=== PATIENT | female | born 1950 | race Caucasian/White ===

== ENCOUNTER 2024-06-27 12:47 | Outpatient (AMB) | payer OTHER, SELFPAY ==
--- NOTE | 2024-06-27 12:53 | A.OFFPC_ITS ---
Vital Signs 06/27/24 13:01 BMI Reason not done Patient refused/unable BP 128/70 Blood Pressure Location Rt brachial Position Right Lateral Respiration 14 Pulse 93 Pulse Source Pulse Oximeter Pulse Oximetry (%) 97 Oxygen Delivery Method Room Air Intake Visit Reasons: Est. care Intake Note: New patient visit Territory Account Manager Required: No Allergies pantoprazole [From Protonix] Allergy (Severe, Verified 06/27/24 14:19) Rash warfarin Allergy (Severe, Verified 06/27/24 14:19) severe pain, blood pockets Tobacco use date assessed: 06/27/24 Fall risk assessment: 2 + Falls in past year Last assessed Fall Risk: 06/27/24 Dental Screening Dental Screen Date: 06/27/24 Did you have a dental visit in the last 12 months?: No Did you have a dental problem in the last 6 months where you did not have access to dental care?: No Was dental information given to patient?: Patient declined HPI HPI Comments History of Present Illness Details 73 y/o F with chronic bilat knee pain, h iatal hernia, malnourishment requiring g tube (since removed), History of right upper extremity thrombus status post surgery, dysphagia, obesity, paroxysmal AFib, sick sinus syndrome status post dual chamber pacemaker, FLOR noncompliant with CPAP, fatty liver, abdominal aorta vascular calcification noted on CT of the abdomen 04/04/2024,peripheral neuropathy Status post Azar-en-Y gastric bypass in 2007, lap GJ ulcer perforation repair with Nguyễn patch in 2015 Family hx: brother prostate ca Health Maintenance: Colon last one 2021, WNL. Mammo declined Dexa Pap NA Tdap admin today, - Pneumococcal vaccination status pending verification from pharmacy Flu declined Specialists: Cards Here today to est care Available records limited, reviewed Obesity/Falls/immobilty: would like home PT uses walker and wheelchair PAF/Pacemaker: On no cardiac meds. Reports PV Cards monitors her pacer. No recent office visits. Getting out of home hard. Depends on van for transport. CAD: not on statin. BLE: c/o chronic edema wo SOB. Does not trend wt at home. FLOR: nontolerant of CPAP Hiatal hernia: - Regular Carafate medication for managing stomach issues post- gastric bypass; feels this controls her sx well. Does not want GI referral. Social History - Age: 73 years old - Currently resides in [place] - Mobility limited; relies on a walker a nd a recliner for sleep Review of Systems - Constitutional: Denies fever or recent illness, but experiences fatigue. - Cardiovascular: No complaints reported during conversation. - Gastrointestinal: Discussed history of gastric bypass and subsequent management issues. - Musculoskeletal: Reports difficulty wa lking, dependence on walker, and general fatigue after mild exertion. - Neurological: Reports neuropathy-like symptoms in feet, feeling of a band across the top of the feet. - Integumentary: Swelling in lower extre mities. Physical Exam General: Well developed, well nourished, in no acute distress. Appears stated age. Head: Normocephalic, atraumatic. Lungs: Clear to auscultation bilaterally. No rales, rhonchi or wheeze noted. Good air flow in all tavarez. Heart: Regular rate and rhythm. No murmurs, click, rubs or gallops are noted. Pulses: Peripheral pulses are equally decreased and palpable bilaterally. Extremities: Sitting in w/c, +1-2 edema ble, skin intact Psych: Normal eye contact, affect and mood appropriate, and normal interactions. Patient is alert and appropriate to context. Discussion Notes I engaged in a comprehensive discussion with the patient about her mobility issues, recurrent falls, and peripheral edema. The patient expressed a need for physical therapy to enhance her strength and mobility. We acknowledged her history of gastric bypass surgery and assessed her ongoing use of Carafate to mitigate gastrointestinal issues. I assessed the need for vaccinations, including Tdap, which was administered, and we discussed the pneumococcal vaccination, with plans to verify her records through a pharmacy. We also addressed her reaction to flu shots. I instructed her to follow up with physical therapy and will conduct a video visit soon to evaluate progress with the prescribed treatments and interventions. Assessment and Plan 73-year-old female with a history of gas tric complications post-bypass surgery, mobility impairment, and recurrent falls presenting with peripheral edema. The patient shows signs of neuropathy and utilizes a walker due to weakness and balance issues. It?s essential to enhance her functional mobility through physical therapy and assess the underlying causes of her edema. We will continue her Carafate for gastric management and monitor her cardiac status remotely with her pacemaker. Patient was informed and verbally consented to the use of an ambient scribe for clinic note documentation during this visit. 1. Peripheral Edema I will prescribe a diuretic for fluid management pending lab results and assess potassium levels before continuing treatment. 2. Vomiting With Dehydration Previously stable after hospitalization. Continue monitoring for recurrence and adjust supportive management as necessary. 3. Mobility Impairment Mobility impairment, primarily due to weakness and potential nerve damage, requires physical therapy, which has been requested for in-home services. The patient to push her mobility boundaries safely under professional guidance. 4. Neuropathy Clinically consistent with peripheral neuropathy. We?ll focus on symptomatic management with possible subsequent follow-up with neurology if symptoms persist or advance. 5. Status Post Gastric Bypass Surgery Continue using Carafate with timing adjustments as tolerated to manage gastric complications. No further intervention needed; defer surgical revision as risks outweigh benefits at her age. Total time spent caring for the patient today was 76 minutes. This includes time spent before the visit reviewing the chart, time spent during the visit, and time spent after the visit on documentation, reviewing laboratory results, diagnostic imaging, medications, performing a medically necessary evaluation, counseling on diagnoses, care coordination, ordering appropriate tests, ordering appropriate medications, review of tests performed by other providers, reporting test results with the patient, communication with other healthcare providers. 06/28/24 Labs resulted after hours, K 2.5 Sent to [facility] for eval and tx. I did not RX any new medications as of this time & will fu after hospital stay PFSH Medical History (Updated 06/28/24 @ 09:59 by Toña Dewey, [facility]) Pacemaker Surgical History (Updated 06/27/24 @ 14:19 by Elisha Irwin) H/O gastric bypass Family History (System 06/27/24 @ 14:19 by Elisha Irwin) Brother Cancer Father Diabetes Social History (System 06/27/24 @ 14:19 by Elisha Irwin) Housing: House (senior housing ) Alcohol intake: former Comment: hasnt had alcohol in 6-7 years Patient Tobacco Use Status: Never used Tobacco e-Cigarette/Vaping Use: Never Used service: No Current occupational status: retired Cognitive needs: No Hearing needs: No Vision needs: No Questionnaire PHQ-9 Over the last 2 weeks, how often have you been bothered by any of the following problems? 1. Little interest or pleasure in doing things: not at all 2. Feeling down, depressed, or hopeless: not at all 3. Trouble falling or staying asleep, or sleeping too much: not at all 4. Feeling tired or having little energy: not at all 5. Poor appetite or overeating: not at all 6. Feeling bad about yourself - or that you are a failure or have let yourself or your family down: not at all 7. Trouble concentrating on things, such as reading the newspaper or watching television: not at all 8. Moving or speaking so slowly that other people could have noticed. Or the opposite - being so fidgety or restless that you have been moving around a lot more than usual: not at all 9. Thoughts that you would be better off or of hurting yourself in some way: not at all Total score: 0 Depression Screening Interpretation: Negative Depression Screening Done: Yes 35049 - PHQ-9 Billing: Yes Source: Developed by Drs. Augustine Goldman, Kayleen De La Cruz, Jose Deal and colleagues, with an educational elizabeth from [employer]. Thrive Questionnaire Date Thrive assessed: 06/27/24 I am a: Patient What is your living situation today?: I have a steady place to live Within the past 12 months, did the food you bought not last and you didn't have the money to get more?: Never true Within the past 12 months, did you worry whether your food would run out before you got money to buy more?: Never true Do you have trouble paying for medicines?: No Do you have trouble getting transportation to medical appointments?: Yes Do you have trouble paying your heating and electricity bill?: No Do you have trouble taking care of your child, family member or friend?: No Do you have trouble with day-to-day activities such as bathing, preparing meals, shopping, managing finances, etc.?: I choose not to answer this question Are you currently unemployed and looking for a job?: No Are you interested in more education?: No Please select the resources that you would like help with: None Currently or been in a relationship where the following occur: I choose not to answer THRIVE Score: 1 AUDIT C Alcohol Use Questionnaire (AUDIT-C) 1. How often do you have a drink containing alcohol?: Never 3. How often do you have six or more drinks on one occasion?: Never Total Score: 0 Score Reviewed/Action Taken: Yes BENJAMIN-7 AMB Questionnaire BENJAMIN-7 Date BENJAMIN - 7 assessed: 06/27/24 Feeling nervous, anxious, or on edge: 0 = Not at all Not being able to stop or control worryin = Not at all Worrying too much about different things: 0 = Not at all Trouble relaxin = Not at all Being so restless that it is hard to sit still: 0 = Not at all Becoming easily annoyed or irritable: 0 = Not at all Feeling afraid as if something awful might happen: 0 = Not at all Total BENJAMIN-7 score (0-4 normal; 5-9 mild; 10-14 moderate; 15-21 severe): 0 Source: Developed by Drs. Augustine Goldman, Kayleen De La Cruz, Jose Deal and colleagues, with an educational elizabeth from [employer]. Physical exam (Primary Care) Vital Signs: Last Vital Signs Pulse 93 06/27/24 13:01 Resp 14 06/27/24 13:01 BP 128/70 06/27/24 13:01 Pulse Ox 97 06/27/24 13:01 Oxygen Delivery Method Room Air 06/27/24 13:01 BMI Assessment/Plan discussion: High BMI High, discussed plan: lifestyle Tobacco/Smoking Status: Tobacco use Status Tobacco use date assessed 06/27/24 06/27/24 13:06 Patient Tobacco Use Status Never used Tobacco 06/27/24 13:00 e-Cigarette/Vaping Use Never Used 06/27/24 13:06 PHQ-9: PHQ-9 Score PHQ-9: Total score 0 06/28/24 09:55 Depression Screening Interpretation: Negative Thrive Assessment: Date of Thrive Assessment Date Thrive assessed 06/27/24 06/27/24 13:46 Currently or been in a relationship where the following occur: I choose not to answer Immunizations Boostrix Tdap 2.5 Lf unit-8 mcg-5 Lf/0.5 mL intramuscular syringe Performing Provider: LEIGH Pickering Performing Location: [facility] Administered by: Shalonda Thacker RN on 06/27/24 14:06 Dose Route Admin Location Dispensed Lot Number Expiration Date [facility] [employer] 0.5 mL IM Right Deltoid 0.5 mL [id number] 08/04/26 89864-207-42 4[employer]ox VIS Given Date VIS Provided VIS Publication Date 06/27/24 Single Vaccine 20 Eligibility Eligibility Date Funding Source Not VFC Eligible 06/27/24 Private Results Reviewed Results Reviewed: RUN: 06/28/24 0954 PAGE 1 [facility] [address] [place] [id number] [employer] [place] Supervisor: Yosvany Perea M.D. Specimen Inquiry Name: Leeanna Wright Age/Sex: 73/F : 1950 Unit#: [id number] Attend Dr: Toña Dewey Re06/27/24 Status: DEP REF Location: [facility] Disch: SPEC : [id number] MICHELLE: 06/27/24-135 STATUS: COMP REQ : [id number] RECD: 06/27/24-[address]: To[facility]wey [facility] COMP: 06/27/24-183 ENTERED: 06/27/24-[address]: ORDERED: CMP, Lipid Panel, TSH Rflx Test Result Flag Reference Sodium 142 135-145 mmol/L Potassium 2.5 *L 3.3-5.1 mmol/L Critical value for test(s): POTS Results called to and read back by: Person calling: [facility] Date: 06/27/24 Time: 1825 CL 103 96-108 mmol/L CO2 30 H 22-29 mmol/L Gap 12 12-20 BUN 10 9-16 mg/dL Creat 0.57 0.5-1.4 mg/dL eGFR > 60 Chronic Kidney Disease: Estimated GFR < 60 mL/min/1.73m2 Severe Kidney Disease: Estimated GFR < 15 mL/min/1.73m2 Glucose, Random 88 60-115 mg/dL CA 7.7 L 8.4-10.2 mg/dL Total Bili 1.0 0.0-1.0 mg/dL AST (GOT) 38 H 5-31 U/L ALT (GPT) < 6 0-31 U/L Protein, Total 6.2 L 6.5-8.0 g/dL Alb 2.7 L 3.5-5.0 g/dL Triglyceride 118 <150 mg/dL Desirable Triglyceride: less than 150 mg/dL Borderline High Triglyceride 150-199 mg/dL High Triglyceride: 200-499 mg/dL Very High Triglyceride: greater than or equal to 5OO mg/dL Cholesterol 124 <200 mg/dL Desirable Cholesterol: less than 200 mg/dL Borderline High Cholesterol: 200-239 mg/dL High Cholesterol: greater than 239 mg/dL LDL Calculated 51 <100 mg/dL Desirable LDL: less than 100 mg/dL Near Optimal/Above Optimal LDL: 110-129 mg/dL Borderline High LDL: 130-159 mg/dL High LDL: 160-189 mg/dL Very High LDL: greater than or equal to 190 mg/dL HDL 50 >40 mg/dL Desirable HDL: greater than 40 mg/dL Note: This HDL assay may give artificially low results in patients with liver disease. Alk Phos 89 39-117 U/L TSH 1.92 0.32-4.0 uIU/mL Coding Level of Care Code New Pt Level 5 (11290) Complex EM visit Add On G2211 Diagnoses Encounter to establish care Z76.89 Frequent falls R29.6 Immobility Z74.09 Influenza vaccination declined Z28.21 Laboratory exam ordered as part of routine general medical examination Z00.00 Leg weakness, bilateral R29.898 Lower extremity edema R60.0 Need for Tdap vaccination Z23 Pacemaker Z95.0 PAF (paroxysmal atrial fibrillation) I48.0 Hiatal hernia K44.9 History of DVT (deep vein thrombosis) Z86.718 Morbidly obese E66.01 FLOR (obstructive sleep apnea) G47.33 Fatty liver K76.0 Coronary artery disease involving [place] coronary artery of [place] heart without angina pectoris I25.10 Associated angina: without angina Coronary Disease-Associated Artery/Lesion type: [place] artery [place] vs. transplanted heart: [place] heart Protein-calorie malnutrition, unspecified severity E46 Protein-calorie malnutrition severity: unspecified severity Hypokalemia E87.6 Hypocalcemia E83.51 Anemia, unspecified type D64.9 Anemia type: unspecified type CPT Codes PROLONG OUTPT/OFFICE VIS - G2212 Additional Codes PHQ-9 - 31086 - PHQ-9 Billing: Yes ([id number]) Assessment & Plan Assessment & Plan (1) Encounter to establish care: Code(s): Z76.89 - Persons encountering health services in other specified circumstances Category: Medical (2) Frequent falls: Code(s): R29.6 - Repeated falls Category: Medical (3) Immobility: Code(s): Z74.09 - Other reduced mobility Category: Medical (4) Influenza vaccination declined: Code(s): Z28.21 - Immunization not carried out because of patient refusal Category: Medical (5) Laboratory exam ordered as part of routine general medical examination: Code(s): Z00.00 - Encounter for general adult medical examination without abnormal findings Category: Medical (6) Leg weakness, bilateral: Code(s): R29.898 - Other symptoms and signs involving the musculoskeletal system Category: Medical (7) Lower extremity edema: Code(s): R60.0 - Localized edema Category: Medical (8) Need for Tdap vaccination: Code(s): Z23 - Encounter for immunization Category: Medical (9) Pacemaker: Code(s): Z95.0 - Presence of cardiac pacemaker Category: Medical (10) PAF (paroxysmal atrial fibrillation): Code(s): I48.0 - Paroxysmal atrial fibrillation Category: Medical (11) Hiatal hernia: Code(s): K44.9 - Diaphragmatic hernia without obstruction or gangrene Category: Medical (12) History of DVT (deep vein thrombosis): Comment: R upper ext s/p surgery Code(s): Z86.718 - Personal history of other venous thrombosis and embolism Category: Medical (13) Morbidly obese: Code(s): E66.01 - Morbid (severe) obesity due to excess calories Category: Medical (14) FLOR (obstructive sleep apnea): Comment: noncompliant w cpap Code(s): G47.33 - Obstructive sleep apnea (adult) (pediatric) Category: Medical (15) Fatty liver: Code(s): K76.0 - Fatty (change of) liver, not elsewhere classified Category: Medical (16) CAD (coronary artery disease): Comment: abdominal aorta vascular calcification noted on CT of the abdomen 04/04/2024 Code(s): I25.10 - Atherosclerotic heart disease of [place] coronary artery without angina pectoris Category: Medical Qualifiers: Associated angina: without angina Coronary Disease-Associated Artery/Lesion type: [place] artery [place] vs. transplanted heart: [place] heart Qualified Code(s): I25.10 - Atherosclerotic heart disease of [place] coronary artery without angina pectoris (17) Protein calorie malnutrition: Code(s): E46 - Unspecified protein-calorie malnutrition Category: Medical Qualifiers: Protein-calorie malnutrition severity: unspecified severity Qualified Code(s): E46 - Unspecified protein-calorie malnutrition (18) Hypokalemia: Code(s): E87.6 - Hypokalemia Category: Medical (19) Hypocalcemia: Code(s): E83.51 - Hypocalcemia Category: Medical (20) Anemia: Code(s): D64.9 - Anemia, unspecified Category: Medical Qualifiers: Anemia type: unspecified type Qualified Code(s): D64.9 - Anemia, unspecified Plan . Orders: Orders Comprehensive Met. Panel 06/27/24 Z00.00 - Encounter for general adult medical examination without abnormal findings Hemoglobin A1c 06/27/24 Z00.00 - Encounter for general adult medical examination without abnormal findings TSH reflex Free T4 06/27/24 Z00.00 - Encounter for general adult medical examination without abnormal findings TDaP Immunization 06/27/24 Z23 - Encounter for immunization Complete Blood Count no Diff 06/27/24 Z00.00 - Encounter for general adult medical examination without abnormal findings Lipid Panel 06/27/24 Z00.00 - Encounter for general adult medical examination without abnormal findings Vitamin B12 and Folate 06/27/24 Z00.00 - Encounter for general adult medical examination without abnormal findings NT-proBNP 06/27/24 R60.0 - Localized edema Referrals [facility]/Hospice Referral R29.6 - Repeated falls, R29.898 - Other symptoms and signs involving the musculoskeletal system, Z74.09 - Other reduced mobility Cardiology Referral I48.0 - Paroxysmal atrial fibrillation, Z95.0 - Presence of cardiac pacemaker Medications: Refilled sucralfate (Carafate) 1 g PO QIDACHS 120 tabs 12RF 30 days Patient Instructions: Walk-In Care (Urgent Care): We Make it Easy Walk-in for urgent medical issues such as: ? Seasonal Allergies ? Insect Bites ? Cough ? Diarrhea ? Acute Asthma Attacks ? Back, Knee or Joint Pain ? Ear Infection ? Fever without a Rash ? Headaches ? Nausea ? [place], Rash or Skin Irritation ? Sore Throat ? Sports Physicals ? Vomiting Most insurances are accepted. Patients do not need to be part of the [facility] to seek care at the walk-in clinic. Locations [address] , [place] [address] ? [phone] [facility] Walk-In Care in [place] provides services to ages 18 and over. Open Tuesday-Tuesday: 8 a.m. to 5 p.m. and Tuesday: 9 a.m. to 3 p.m.* *Hours may vary due to staffing availability. To confirm Walk-In Care hours in [place], please call [phone]. [address] [place] [address] ? [phone] [facility] Walk-In Care in [place] provides services to ages 12 and over. Open Tuesday-Tuesday: 8 a.m. to 5 p.m. Hours may vary due to staffing availability. To confirm Walk-In Care hours in [place], please call [phone]. LABORATORY SERVICES: [facility] Lab ? Primary Location [address] [place] [address] Tuesday through Tuesday 6:00 AM ? 5:00 PM Tuesday 7:00 AM ? 11:00 AM* [phone] The [facility] Lab is centrally located near the front entrance of the [facility] for easy outpatient access. Convenient parking is provided for outpatients. *Hours may vary due to staffing availability. To confirm Laboratory hours for any location, please call [phone]. Offsite Location For your convenience, we offer offsite laboratory draw stations at the following locations: [address] [place] [address] ? [facility] [address], [address] Tuesday through Tuesday 7:30 AM ? 1:00 PM* [phone] *Hours may vary due to staffing availability. To confirm Laboratory hours for any location, please call [phone]. [place] ? Jodi Contreras [address] Tuesday through Tuesday 6:00 AM ? 3:30 PM* Tuesday 6:30 AM ? 3 PM* [phone] *Hours may vary due to staffing availability. To confirm Laboratory hours for any location, please call [phone]. [address] [facility] Tuesday through Tuesday 7:30 AM ? 4:00 PM* [phone] *Hours may vary due to staffing availability. To confirm Laboratory hours for any location, please call [phone]. [address] [facility] Tuesday through 9:00 AM ? 4:00 PM* *Hours may vary due to staffing availability. To confirm Laboratory hours for any location, please call [phone]. Appointments are not necessary. Walk-ins are welcome. Like all the departments throughout the [facility], our Lab undergoes frequent reviews to ensure the quality and accuracy of test results, and our staff takes special pride in its status as a nationally accredited facility. Patient Portal: ONE PATIENT. ONE RECORD. BETTER CARE. [facility] has a fully integrated, cutting- edge mobile electronic health information system that has revolutionized the way we care for our patients and manage our organization. This system improves communication and coordination enabling us to provide safe, higher-quality care, and an overall positive experience for staff and patients. Our first priority, as always, is to deliver the highest quality care possible. The system is running in the background supporting that priority. This portal is for all [facility] services and practices. If you are experiencing any technical difficulties with enrolling or logging into the Patient Portal please complete the [facility] Patient Portal Technical Support Form. [facility] now offers a new secure on-line interactive tool for patients to review their health information ? ?Patient Portal. This interactive web portal will enable patients and their families to take an active role in their care by providing easy, secure access to their health information via the internet. The Patient Portal provides patients with instant access to their health information, including laboratory results, medications, allergies, demographic information, visit history, and more. In addition to managing their own care, parents and health care proxies with authorized consent will appreciate the ability to access the records of those individuals for whom they provide care. Please note: if you wish to gain access (Proxy) to another patient?s portal, you will be required to come to the Medical Records Department in person at [facility]. Both the patient giving proxy access and the proxy will need to provide photo identification and complete the appropriate authorization. The Patient Portal also allows track their appointments online. The [facility] Patient Portal also saves patients time by allowing them to submit updates to their demographic and contact information prior to their visits. Portal email notifications will also alert patients to any new activity on their portal, such as test results and new appointments. In order to initially enroll in the [facility] Patient Portal, you will need to enter some required information including the following: * your [facility] Medical Record number * your personal home email address * name * date of Please note: In order to enroll in the [facility] Patient Portal, we need to have yo ur email address on file in your electronic medical record. ?The email address needs to be specific for one person (yourself) in order for your Portal enrollment to be successful. ?You can update your email address in person with our Registration staff when you are registering for a hospital visit. ?Otherwise, you will need to come to the Health Information Management (Medical Records) Department at [facility]. ?We are open from Tuesday ? Tuesday from 7:30 a.m. ? 4:30 p.m. ?You will be required to present a photo id. Once you have successfully enrolled in the Patient Portal, you will receive a one-time user id and password for the Portal, sent to your email address. ?This will allow you to log into the Patient Portal within 99 hrs and reset your own logon id and password, and define personal security questions. ?Once your permanent login and password have been set, you can log into the [facility] Patient Portal at any time via the blue button above or from the Portal Logon button on any page of the [facility] website. [facility] and [facility] encourage all of our patients to enroll in Patient Portal as it presents a valuable opportunity for patients and their families to actively participate in their care and stay healthy Welcome to [facility]. ?We look forward to working with you. Patient Instructions - Use the walker consistently to prevent falls. - Anticipate contact from the physical therapist for appointment scheduling. - Continue Carafate as directed, timing intake appropriately to meals. - Take Tylenol Colds and Flu as per your past successful practice during flu season. - Check with the pharmacy about your pneumococcal vaccination status. - Report any new or worsening symptoms such as increased edema or neuropathy. - Prepare for a scheduled follow-up video visit to assess progress and adjust treatment as necessary.
[2024-06-27 13:01] VITALS: BP 128/70; PULSE 93; RESP 14; O2SAT 97
--- OUTSIDE RECORDS SUMMARY | 2024-06-27 14:08 | XMS_ITS | Encounter Summary ---
Author Organization [facility] Address [address] [place] [id number] Care Team Providers Care Waiter Waitress Name Role Phone Physician, No Pcp Primary Care Provider Unavaila ble Encounter Details Date Type Department Care Team (Late st Contact Info) Description 04/25/2024 Lab Requisition [facility] [address] [place] [address] Gill Hoff MD [address] [place] [id number] [facility] [place] [facility] drug therapy; Disorder of thyroid, unspecified; Failure to thrive (child) Social History Tobacco Use Types Packs/Day Years Used Date Smoking Tobacco: Never Smokeless Tobacco: Never Alcohol Use Standard Drinks/Week Comments Yes 5.8 (1 standard drink = 0.6 oz p ure alcohol) Interpersonal Safety Answer Date Record ed Physical Abuse 04/15/2024 Verbal Abuse 04/15/2024 Comments Unknown Sex and Gender Information Value Date Recorded Sex Assigned at Not on file Legal Sex Female 6:36 PM EST Gender Identity Not on file Sexual Orientation Not on file documented as of this encounter Plan of Treatment Not on file documented as of this encounter Procedures Procedure Name Priority Date/Time Associated Diagnosis Comments CBC WITH AUTO DIFFERENTIAL Routine 04/25/2024 5:31 AM EST Other [facility] (current) drug therapy Disorder of thyroid, unspecified Failure to thrive (child) VITAMIN D 25 HYDROXY Routine 04/25/2024 5:31 AM EST [facility] drug therapy Disorder of thyroid, unspecified Failure to thrive (child) CBC AND DIFFERENTIAL Routine 04/25/2024 5:31 AM EST Other [facility] (current) drug therapy Disorder of thyroid, unspecified Failure to thrive (child) THYROID STIMULATING HORMONE Routine 04/25/2024 5:31 AM EST [facility] drug therapy Disorder of thyroid, unspecified Failure to thrive (child) FOLATE Routine 04/25/2024 5:31 AM EST Other [facility] (current) drug therapy Disorder of thyroid, unspecified Failure to thrive (child) VITAMIN B12 Routine 04/25/2024 5:31 AM EST Other [facility] (current) drug therapy Disorder of thyroid, unspecified Failure to thrive (child) COMPREHENSIVE METABOLIC PANEL Routine 04/25/2024 5:31 AM EST Other [facility] (current) drug therapy Disorder of thyroid, unspecified Failure to thrive (child) documented in this encounter Results * (ABNORMAL) CBC auto differential (04/25/2024 5:31 AM EST) WBC 7.3 4.8 - 10.8 K/mcL LAB HEMETOLOGY METHOD 04/25/2024 10:31 AM [facility] RBC 3.10(L) 3.80 - 4.80 M/mcL LAB HEMETOLOGY METHOD 04/25/2024 10:31 AM [facility] Hemoglobin 10.3(L) 11.5 - 16.0 g/dL LAB HEMETOLOGY METHOD 04/25/2024 10:31 AM [facility] Hematocrit 33.0(L) 35.0 - 47.0 % LAB HEMETOLOGY METHOD 04/25/2024 10:31 AM [facility] MCV 106.1(H) 79.0 - 98.0 FL LAB HEMETOLOGY METHOD 04/25/2024 10:31 AM [facility] MCH 33.1(H) 27.0 - 32.0 pcg LAB HEMETOLOGY METHOD 04/25/2024 10:31 AM [facility] MCHC 31.2(L) 32.0 - 37.0 g/dL LAB HEMETOLOGY METHOD 04/25/2024 10:31 AM [facility] RDW 20.2(H) 11.0 - 15.0 % LAB HEMETOLOGY METHOD 04/25/2024 10:31 AM [facility] Platelets 306 130 - 400 K/mcL LAB HEMETOLOGY METHOD 04/25/2024 10:31 AM [facility] MPV 9.0 7.0 - 11.0 FL LAB HEMETOLOGY METHOD 04/25/2024 10:31 AM [facility] NRBC 0.0 <1.0 % LAB HEMETOLOGY METHOD 04/25/2024 10:31 AM [facility] NRBC Absolute 0.00 <0.10 K/mcL LAB HEMETOLOGY METHOD 04/25/2024 10:31 AM [facility] Neutrophils Relative 53.4 % LAB HEMETOLOGY METHOD 04/25/2024 10:31 AM [facility] Lymphocytes Relative 27.4 % LAB HEMETOLOGY METHOD 04/25/2024 10:31 AM [facility] Monocytes Relative 14.8 % LAB HEMETOLOGY METHOD 04/25/2024 10:31 AM [facility] Eosinophils Relative 2.5 % LAB HEMETOLOGY METHOD 04/25/2024 10:31 AM [facility] Basophils Relative 0.7 % LAB HEMETOLOGY METHOD 04/25/2024 10:31 AM [facility] Immature Granulocytes Relative 1.2 % LAB HEMETOLOGY METHOD 04/25/2024 10:31 AM [facility] Neutrophils Absolute 3.87 1.50 - 7.00 K/mcL LAB HEMETOLOGY METHOD 04/25/2024 10:31 AM EST [facility] Lymphocytes Absolute 1.99 1.00 - 5.00 K/[facility] LAB HEMETOLOGY METHOD 04/25/2024 10:31 AM EST [facility] Monocytes Absolute 1.07(H) 0.20 - 1.00 K/[facility] LAB HEMETOLOGY METHOD 04/25/2024 10:31 AM EST [facility] Eosinophils Absolute 0.18 0.00 - 0.50 K/[facility] LAB HEMETOLOGY METHOD 04/25/2024 10:31 AM EST [facility] Basophils Absolute 0.05 0.00 - 0.20 K/[facility] LAB HEMETOLOGY METHOD 04/25/2024 10:31 AM [facility] Immature Granulocytes Absolute 0.09(H) 0.00 - 0.03 K/[facility] LAB HEMETOLOGY METHOD 04/25/2024 10:31 AM EST [facility] Blood Venous blood specimen / Unknown Venipuncture / Unknown 04/25/2024 5:31 AM EST 04/25/2024 9:31 AM EST us Gill Hoff MD LAB BLOOD ORDERABLES Final Resu lt [facility] [address] [place] [address], * (ABNORMAL) Vitamin D 25 hydroxy (04/25/2024 5:31 AM EST) Vit D, 25-Hydroxy 10.1(L) 30.0 - 80.0 ng/mL LAB CHEMISTRY METHOD 04/25/2024 12:07 PM EST [facility] Blood Venous blood specimen / Unknown Venipuncture / Unknown 04/25/2024 5:31 AM EST 04/25/2024 9:31 AM EST us Gill Hoff MD LAB BLOOD ORDERABLES Final Resu lt Performing Organization Address [facility]/ZIP Co de Phone Number [facility] [address] [place] [address], [place] [phone] * Vitamin B12 (04/25/2024 5:31 AM EST) Vitamin B-12 678 250 - 900 pcg/mL LAB CHEMISTRY METHOD 04/25/2024 12:06 PM EST [facility] Blood Venous blood specimen / Unknown Venipuncture / Unknown 04/25/2024 5:31 AM EST 04/25/2024 9:31 AM EST us Gill Hoff MD LAB BLOOD ORDERABLES Final Resu lt Performing Organization Address [facility] Co de Phone Number [facility] [address] [place] [address], [place] [phone] * Folate (04/25/2024 5:31 AM EST) Pathologist [facility] Folate 4.6 2.8 - 17.0 ng/ml LAB CHEMISTRY METHOD 04/25/2024 12:06 PM EST [facility] Blood Venous blood specimen / Unknown Venipuncture / Unknown 04/25/2024 5:31 AM EST 04/25/2024 9:31 AM EST us Gill Hoff MD LAB BLOOD ORDERABLES Final Resu lt Performing Organization Address City/[facility]/ZIP Co de Phone Number [facility] [address] [place] [address], [place] [phone] * (ABNORMAL) Thyroid stimulating hormone (04/25/2024 5:31 AM EST) TSH 9.63(H) 0.40 - 4.00 mcIU/mL LAB CHEMISTRY METHOD 04/25/2024 12:06 PM EST [facility] Blood Venous blood specimen / Unknown Venipuncture / Unknown 04/25/2024 5:31 AM EST 04/25/2024 9:31 AM EST us Gill Hoff MD LAB BLOOD ORDERABLES Final Resu lt [facility] [address] [place] [address], * (ABNORMAL) Comprehensive metabolic panel (04/25/2024 5:31 AM EST) Sodium 139 133 - 145 mmol/L LAB CHEMISTRY METHOD 04/25/2024 12:06 PM [facility] Potassium 4.3 3.5 - 5.5 mmol/L LAB CHEMISTRY METHOD 04/25/2024 12:06 PM [facility] Chloride 103 96 - 110 mmol/L LAB CHEMISTRY METHOD 04/25/2024 12:06 PM [facility] CO2 28 21 - 32 mmol/L LAB CHEMISTRY METHOD 04/25/2024 12:06 PM [facility] Anion Gap 8 3 - 11 LAB CHEMISTRY METHOD 04/25/2024 12:06 PM [facility] Glucose 67(L) 70 - 100 mg/dL LAB CHEMISTRY METHOD 04/25/2024 12:06 PM [facility] BUN 21 5 - 25 mg/dL LAB CHEMISTRY METHOD 04/25/2024 12:06 PM [facility] Creatinine 0.72 0.50 - 1.10 mg/dL LAB CHEMISTRY METHOD 04/25/2024 12:06 PM [facility] eGFR 87 >=60 mL/min/1. 73m2 LAB CHEMISTRY METHOD 04/25/2024 12:06 PM [facility] Comment:Calculation based on the??Chronic Kidney Disease Epidemiology Collaboration (CKD-EPI) equation refit??without adjustment for race. BUN/Creatinine Ratio 29.2 LAB CHEMISTRY METHOD 04/25/2024 12:06 PM [facility] Calcium 7.9(L) 8.5 - 10.5 mg/dL LAB CHEMISTRY METHOD 04/25/2024 12:06 PM [facility] AST (SGOT) 22 10 - 42 unit/L LAB CHEMISTRY METHOD 04/25/2024 12:06 PM [facility] ALT (SGPT) 21 10 - 60 unit/L LAB CHEMISTRY METHOD 04/25/2024 12:06 PM [facility] Alkaline Phosphatase 128(H) 42 - 121 unit/L LAB CHEMISTRY METHOD 04/25/2024 12:06 PM [facility] Total Protein 4.8(L) 6.0 - 8.0 g/dL LAB CHEMISTRY METHOD 04/25/2024 12:06 PM [facility] Albumin 1.7(L) 3.2 - 5.0 g/dL LAB CHEMISTRY METHOD 04/25/2024 12:06 PM [facility] Total Bilirubin 1.0 0.0 - 1.4 mg/dL LAB CHEMISTRY METHOD 04/25/2024 12:06 PM [facility] Blood Venous blood specimen / Unknown Venipuncture / Unknown 04/25/2024 5:31 AM EST 04/25/2024 9:31 AM EST us Gill Hoff MD LAB BLOOD ORDERABLES Final Resu lt [facility] [address] [place] [address], [place] [phone] documented in this encounter Visit Diagnoses Diagnosis Other [facility] (current) drug therapy Disorder of thyroid, unspecified Failure to thrive (child) Failure to thrive documented in this encounter Care Teams Waiter Waitress Relationship Specialty Start Date End Date Physician, No Pcp PCP - General 04/14/24 documented as of this encounter
--- OUTSIDE RECORDS SUMMARY | 2024-06-27 14:08 | XMS_ITS | Encounter Summary ---
Author Organization [facility] Address [address] [place] [phone] Care Team Providers Care Mixer And Scaler Name Role Phone Physician, No Pcp Primary Care Provider Unavaila ble Encounter Details Date Type Department Care Team (Late st Contact Info) Description 06/12/2024 Telephone [facility] - [facility] [address] [facility] [address] [place] [address] Christian Hernandez MD [address] [place] [address] Social History Tobacco Use Types Packs/Day Years [...] on file documented as of this encounter Progress Notes * Lorna Guevara NP - 06/14/2024 9:11 AM EST Message also left for emergency contact Eugenia Plunkettjannetrosemary at [phone] * Ty Anderson - 06/12/2024 12:18 PM EST LMOM regarding disconnected monitor, left message on machine, will follow up with a letter. documented in this encounter Plan of Treatment Not on file documented as of this encounter Visit Diagnoses Not on filedocumented in this encounter Care Teams Mixer And Scaler Relationship Specialty Start Date End Date Physician, No Pcp PCP - General 04/14/24 documented as of this encounter
--- OUTSIDE RECORDS SUMMARY | 2024-06-27 14:08 | XMS_ITS | Encounter Summary ---
Author Organization [facility] Address [address] [place] [address] Care Team Providers Care Chief Controller Tower Name Role Phone Physician, No Pcp Primary Care Provider Unavaila ble Encounter Details Date Type Department Care Team (Late st Contact Info) Description 05/29/2024 Telephone [facility] - [facility] [address] [facility] [address] [place] [phone] Christian Hernandez MD [address] [place] [address] Social History Tobacco Use Types Packs/Day Years [...] as of this encounter Progress Notes * Ty Anderson - 05/29/2024 1:01 PM EST Spoke with Pt, she still has not had any help come over to move her monitor closer to her chair. She says she will call when someone does come to help her. documented in this encounter Plan of Treatment Not on file documented as of this encounter Visit Diagnoses Not on filedocumented in this encounter Care Teams Chief Controller Tower Relationship Specialty Start Date End Date Physician, No Pcp PCP - General 04/14/24 documented as of this encounter
--- OUTSIDE RECORDS SUMMARY | 2024-06-27 14:09 | XMS_ITS | Clinical Summary ---
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 Active sucralfate (CARAFATE) 1 gram tablet TAKE ONE TABLET BY MOUTH THREE TIMES A DAY BEFORE MEALS AND AT BEDTIME Active sucralfate (CARAFATE) 1 gram tablet Take 1 tablet (1 g total) by mouth 3 (three) times a day. 90 each 11 04/20/2024 5 Active famotidine (PEPCID) 20 mg tablet Take 1 tablet (20 mg total) by mouth 2 (two) times a day. 60 each 11 04/20/2024 5 Active Active Problems Problem Noted Date Diagnosed Date Intertrigo 04/20/2024 Nausea and vomiting, unspecified vomiting type 1 06/18/2023 Uncontrollable nausea and vomiting 04/14/2024 Encounters Date Type Department Care Team Description 06/12/2024 Telephone [facility] Cardiology [facility] - [facility] [address] [facility] [address] [place] [phone] Christian Hernandez MD 05/29/2024 Telephone [facility] Cardiology [facility] - [facility] [address] [facility] [address] [place] [phone] Christian Hernandez MD 05/23/2024 Telephone [facility] - [facility] [address] [facility] [address] [place] [phone] Christian Hernandez MD 05/07/2024 Lab Requisition [facility] Lab [address] [place] [phone] Tad Maloney NP Hypothyroidism, unspecified 04/25/2024 Lab Requisition [facility] - [facility] Lab [address] [place] [phone] Gill Hoff MD Other mcfp (current) drug therapy; Disorder of thyroid, unspecified; Failure to thrive (child) 04/20/2024 - 04/21/2024 10:49 AM EST Emergency [facility] Emergency [address] [place] [phone] Discharge Disposition: ED Dismiss - Never Arrived 04/14/2024 5:19 AM EST - 04/20/2024 6:08 PM EST Hospital Encounter [facility] Medical Surgical Unit [address] [place] [phone] Paulo Espinoza MD Santoyo-Pacheco, Omar D, MD Lower extremity edema (Primary Dx); Nausea and vomiting, unspecified vomiting type; Uncontrollable nausea and vomiting Discharge Disposition: Longterm Facility from Last 3 Months Surgical History Surgery Date Site/Laterality Comments HYSTERECTOMY 1979 PROCEDURE: HISTORICAL HYSTERECTOMY SHOULDER ARTHROSCOPY 2002 PROCEDURE: CO SURGICAL ARTHROSCOPY SHOULDER W/LSS&RESCJ ADS; COMMENT: for calcium buildup GASTRIC BYPASS 2007 PROCEDURE: CO GASTRIC RSTCV W/BYP W/SM INT RCNSTJ LIMIT ABSRPJ CATARACT EXTRACTION 2008 PROCEDURE: HISTORICAL CATARACT REMOVAL; COMMENT: bilateral OTHER SURGICAL HISTORY 01/18/12 PROCEDURE: REMOVAL OF PACEMAKER OTHER SURGICAL HISTORY 2015 PROCEDURE: CO GASTROTOMY W/SUTURE REPAIR BLEEDING ULCER; COMMENT: gastrojejunal PACEMAKER IMPLANT 2011 PROCEDURE: HISTORICAL PACEMAKER OTHER SURGICAL HISTORY PROCEDURE: GASTROSTOMY/JEJUNOSTOMY TUBE Medical History Medical History Date Comments Seasonal allergies DX:Seasonal a llergies Sick sinus syndrome (CMS/HCC) 12/12/2015 DX :Sick sinus syndrome (HCC) History of gastric bypass 12/12/2015 DX:His tory of gastric bypass Family History Relation Name Status Comments Brother Alive times 2 , one h as colon cancer, the other is healthy Father quadruple bipas s, diabetes Maternal Grandfather Maternal Grandmother Mother chf, Paternal Grandfather Paternal Grandmother Sister Alive times 2, health y had 3 one has passed from diabetes, chf Son Other gave up for ado ption (rape) Social History Tobacco Use Types Packs/Day Years [...] on file Sexual Orientation Not on file Obstetrics History Last Filed Vital Signs Vital Sign Reading Time Taken Comments Blood Pressure 123/67 04/20/2024 2:40 PM EST Pulse 89 04/20/2024 2:40 PM EST Temperature 36.1 ??C (97 ??F) 04/20/2024 2:40 PM EST Respiratory Rate 18 04/20/2024 2:40 PM EST Oxygen Saturation 100% 04/20/2024 2:40 PM EST Inhaled Oxygen Concentration - - Weight 109 kg (241 lb 2.9 oz) 04/14/2024 5:31 AM EST Height 158 cm (5' 2.21 ) 04/14/2024 5:31 AM EST Body Mass Index 43.82 04/14/2024 5:31 AM EST Plan of Treatment Health Maintenance Due Date Last Done Comments DTaP,Tdap,and Td Vaccines (1 - Tdap) 10/24/1967 Zoster Vaccines (2 of 3) 09/08/2017 07/14/2017 Cholesterol Screening (Lipid Panel) 04/17/2022 Colorectal Cancer Screening: Colonoscopy 04/17/2022 Depression Screening 04/17/2022 Hepatitis C Screening 04/17/2022 Medicare Annual Wellness Visit 04/17/2022 Osteoporosis Screening (Bone Density Screening) 04/17/2022 Social Influencers of Health Screening 04/17/2022 RSV Immunization Patients 60+ Years Old (1 - 1-dose 75+ series) 10/24/2023 COVID-19 Vaccine ( season) 2024 06/04/2021, 11/25/2020 Influenza Vaccine (#1) 2024 7, 03/23/2016, 07/04/2015, Additional history exists Falls Risk Assessment 04/20/2025 04/20/2024 Pneumococcal Vaccine: 50+ Years Completed 11/06/2018, 03/23/2016 HIB Vaccines Aged Out No longer eligi ble based on patient's age to complete this topic HPV Vaccines Aged Out No longer eligi ble based on patient's age to complete this topic Hepatitis A Vaccines Aged Out No long er eligible based on patient's age to complete this topic Hepatitis B Vaccines Aged Out No long er eligible based on patient's age to complete this topic IPV Vaccines Aged Out No longer eligi ble based on patient's age to complete this topic MMR Vaccines Aged Out No longer eligi ble based on patient's age to complete this topic Meningococcal ACWY Vaccine Aged Out N o longer eligible based on patient's age to complete this topic RSV Immunization Patients Under 20 months Aged Out No longer eligible based on patient's age to complete this topic Varicella Vaccines Aged Out No longer eligible based on patient's age to complete this topic Procedures Procedure Name Priority Date/Time Associated Diagnosis Comments THYROID STIMULATING HORMONE WITH REFLEX TO FREE T4 AND FREE T3 Routine 05/07/2024 4:56 AM EST Hypothyroidism, unspecified CBC WITH AUTO DIFFERENTIAL Routine 04/25/2024 5:31 AM EST Other mcfp (current) drug therapy Disorder of thyroid, unspecified Failure to thrive (child) VITAMIN D 25 HYDROXY Routine 04/25/2024 5:31 AM EST Other continuous churn buttermaker (current) drug therapy Disorder of thyroid, unspecified Failure to thrive (child) VITAMIN B12 Routine 04/25/2024 5:31 AM EST Other mcfp (current) drug therapy Disorder of thyroid, unspecified Failure to thrive (child) FOLATE Routine 04/25/2024 5:31 AM EST Other mcfp (current) drug therapy Disorder of thyroid, unspecified Failure to thrive (child) THYROID STIMULATING HORMONE Routine 04/25/2024 5:31 AM EST Other continuous churn buttermaker (current) drug therapy Disorder of thyroid, unspecified Failure to thrive (child) COMPREHENSIVE METABOLIC PANEL Routine 04/25/2024 5:31 AM EST Other mcfp (current) drug therapy Disorder of thyroid, unspecified Failure to thrive (child) CBC AND DIFFERENTIAL Routine 04/25/2024 5:31 AM EST Other continuous churn buttermaker (current) drug therapy Disorder of thyroid, unspecified Failure to thrive (child) CBC WITH AUTO DIFFERENTIAL Routine 04/20/2024 5:27 AM EST MAGNESIUM Routine 04/20/2024 5:27 AM EST BASIC METABOLIC PANEL Routine 04/20/2024 5:27 AM EST CBC AND DIFFERENTIAL Routine 04/20/2024 5:27 AM EST PHOSPHORUS Routine 04/20/2024 5:27 AM EST SEDIMENTATION RATE Add-On 04/19/2024 6: 45 AM EST C-REACTIVE PROTEIN Add-On 04/19/2024 6: 45 AM EST CBC WITH AUTO DIFFERENTIAL Routine 04/19/2024 6:45 AM EST PHOSPHORUS Routine 04/19/2024 6:45 AM EST CBC AND DIFFERENTIAL Routine 04/19/2024 6:45 AM EST BASIC METABOLIC PANEL Routine 04/19/2024 6:45 AM EST MAGNESIUM Routine 04/19/2024 6:45 AM EST CBC WITH AUTO DIFFERENTIAL Routine 04/18/2024 6:18 AM EST PHOSPHORUS Routine 04/18/2024 6:18 AM EST MAGNESIUM Routine 04/18/2024 6:18 AM EST CBC AND DIFFERENTIAL Routine 04/18/2024 6:18 AM EST BASIC METABOLIC PANEL Routine 04/18/2024 6:18 AM EST XR CHEST 1 VIEW Routine 04/17/2024 9:42 AM EST CBC WITH AUTO DIFFERENTIAL Routine 04/17/2024 5:34 AM EST MAGNESIUM Routine 04/17/2024 5:34 AM EST CBC AND DIFFERENTIAL Routine 04/17/2024 5:34 AM EST BASIC METABOLIC PANEL Routine 04/17/2024 5:34 AM EST ECG ANNOTATED 04/17/2024 CBC WITH AUTO DIFFERENTIAL Routine 04/16/2024 4:10 PM EST CBC AND DIFFERENTIAL Routine 04/16/2024 4:10 PM EST MAGNESIUM Routine 04/15/2024 6:08 AM EST BASIC METABOLIC PANEL Routine 04/15/2024 6:08 AM EST VAS US DUPLEX LOWER EXT VENOUS BILAT Routine 04/14/2024 6:17 PM EST Lower extremity edema CT ABDOMEN PELVIS W CONTRAST STAT 04/14/2024 1:13 PM EST BETA HYDROXYBUTYRATE Add-On 04/14/2024 8:02 AM EST CBC WITH AUTO DIFFERENTIAL STAT 04/14/2024 8:02 AM EST MAGNESIUM STAT 04/14/2024 8:02 AM EST BASIC METABOLIC PANEL STAT 04/14/2024 8:02 AM EST CBC AND DIFFERENTIAL STAT 04/14/2024 8:02 AM EST ECG 12-LEAD STAT 04/14/2024 7:13 AM EST from Last 3 Months Results * Thyroid stimulating hormone with reflex to free t4 and free t3 (05/07/2024 4:56 AM EST) [facility] TSH 2.86 0.40 - 4.00 mcIU/mL LAB CHEMISTRY METHOD 05/07/2024 10:17 AM EST [facility] Blood Venous blood specimen / Unknown Venipuncture / Unknown 05/07/2024 4:56 AM EST 05/07/2024 9:13 AM EST us Tad Maloney NP LAB BLOOD ORDERABLES Final Resul t [facility] [address] [place] [address], [place] [phone] * (ABNORMAL) CBC auto differential (04/25/2024 5:31 AM EST) Only the most recent of7 resultswithin the time period is included. [facility] WBC 7.3 4.8 - 10.8 K/mcL LAB HEMETOLOGY METHOD 04/25/2024 10:31 AM EST [facility] RBC 3.10(L) 3.80 - 4.80 M/mcL LAB HEMETOLOGY METHOD 04/25/2024 10:31 AM EST [facility] Hemoglobin 10.3(L) 11.5 - 16.0 g/dL LAB HEMETOLOGY METHOD 04/25/2024 10:31 AM EST [facility] Hematocrit 33.0(L) 35.0 - 47.0 % LAB HEMETOLOGY METHOD 04/25/2024 10:31 AM [facility] MCV 106.1(H) 79.0 - 98.0 FL LAB HEMETOLOGY METHOD 04/25/2024 10:31 AM [facility] MCH 33.1(H) 27.0 - 32.0 pcg LAB HEMETOLOGY METHOD 04/25/2024 10:31 AM [facility] MCHC 31.2(L) 32.0 - 37.0 g/dL LAB HEMETOLOGY METHOD 04/25/2024 10:31 AM [facility] RDW 20.2(H) 11.0 - 15.0 % LAB HEMETOLOGY METHOD 04/25/2024 10:31 AM [facility] Platelets 306 130 - 400 K/mcL LAB HEMETOLOGY METHOD 04/25/2024 10:31 AM [facility] MPV 9.0 7.0 - 11.0 FL LAB HEMETOLOGY METHOD 04/25/2024 10:31 AM [facility] NRBC 0.0 <1.0 % LAB HEMETOLOGY METHOD 04/25/2024 10:31 AM [facility] NRBC Absolute 0.00 <0.10 K/mcL LAB HEMETOLOGY METHOD 04/25/2024 10:31 AM [facility] Neutrophils Relative 53.4 % LAB HEMETOLOGY METHOD 04/25/2024 10:31 AM [facility] Lymphocytes Relative 27.4 % LAB HEMETOLOGY METHOD 04/25/2024 10:31 AM [facility] Monocytes Relative 14.8 % LAB HEMETOLOGY METHOD 04/25/2024 10:31 AM [facility] Eosinophils Relative 2.5 % LAB HEMETOLOGY METHOD 04/25/2024 10:31 AM [facility] Basophils Relative 0.7 % LAB HEMETOLOGY METHOD 04/25/2024 10:31 AM EST [facility] Immature Granulocytes Relative 1.2 % LAB HEMETOLOGY METHOD 04/25/2024 10:31 AM [facility] Neutrophils Absolute 3.87 1.50 - 7.00 K/mcL LAB HEMETOLOGY METHOD 04/25/2024 10:31 AM EST [facility] Lymphocytes Absolute 1.99 1.00 - 5.00 K/mcL LAB HEMETOLOGY METHOD 04/25/2024 10:31 AM EST [facility] Monocytes Absolute 1.07(H) 0.20 - 1.00 K/mcL LAB HEMETOLOGY METHOD 04/25/2024 10:31 AM EST [facility] Eosinophils Absolute 0.18 0.00 - 0.50 K/mcL LAB HEMETOLOGY METHOD 04/25/2024 10:31 AM EST [facility] Basophils Absolute 0.05 0.00 - 0.20 K/mcL LAB HEMETOLOGY METHOD 04/25/2024 10:31 AM EST [facility] Immature Granulocytes Absolute 0.09(H) 0.00 - 0.03 K/mcL LAB HEMETOLOGY METHOD 04/25/2024 10:31 AM [facility] Blood Venous blood specimen / Unknown Venipuncture / Unknown 04/25/2024 5:31 AM EST 04/25/2024 9:31 AM EST us Gill Hoff MD LAB BLOOD ORDERABLES Final Resu lt [facility] [address] [place] [address], * (ABNORMAL) Vitamin D 25 hydroxy (04/25/2024 5:31 AM EST) Vit D, 25-Hydroxy 10.1(L) 30.0 - 80.0 ng/mL LAB CHEMISTRY METHOD 04/25/2024 12:07 PM EST [facility] Blood Venous blood specimen / Unknown Venipuncture / Unknown 04/25/2024 5:31 AM EST 04/25/2024 9:31 AM EST us Gill Hoff MD LAB BLOOD ORDERABLES Final Resu lt Performing Organization Address [facility] Co de Phone Number [facility] [address] [place] [address], [place] [phone] * (ABNORMAL) Thyroid stimulating hormone (04/25/2024 5:31 AM EST) TSH 9.63(H) 0.40 - 4.00 mcIU/mL LAB CHEMISTRY METHOD 04/25/2024 12:06 PM EST [facility] Blood Venous blood specimen / Unknown Venipuncture / Unknown 04/25/2024 5:31 AM EST 04/25/2024 9:31 AM EST us Gill Hoff MD LAB BLOOD ORDERABLES Final Resu lt Performing Organization Address [facility] de Phone Number [facility] [address] [place] [address], [place] [phone] * Folate (04/25/2024 5:31 AM EST) Folate 4.6 2.8 - 17.0 ng/ml LAB CHEMISTRY METHOD 04/25/2024 12:06 PM EST [facility] Blood Venous blood specimen / Unknown Venipuncture / Unknown 04/25/2024 5:31 AM EST 04/25/2024 9:31 AM EST us Gill Hoff MD LAB BLOOD ORDERABLES Final Resu lt Performing Organization Address City/[facility]/ZIP Co de Phone Number [facility] [address] [place] [address], [place] [phone] * Vitamin B12 (04/25/2024 5:31 AM EST) Pathologist [facility] Vitamin B-12 678 250 - 900 pcg/mL LAB CHEMISTRY METHOD 04/25/2024 12:06 PM [facility] Blood Venous blood specimen / Unknown Venipuncture / Unknown 04/25/2024 5:31 AM EST 04/25/2024 9:31 AM EST us Gill Hoff MD LAB BLOOD ORDERABLES Final Resu lt [facility] [address] [place] [address], [place] [phone] * (ABNORMAL) Comprehensive metabolic panel (04/25/2024 5:31 AM EST) [facility] Sodium 139 133 - 145 mmol/L LAB CHEMISTRY METHOD 04/25/2024 12:06 PM [facility] Potassium 4.3 3.5 - 5.5 mmol/L LAB CHEMISTRY METHOD 04/25/2024 12:06 PM [facility] Chloride 103 96 - 110 mmol/L LAB CHEMISTRY METHOD 04/25/2024 12:06 PM [facility] CO2 28 21 - 32 mmol/L LAB CHEMISTRY METHOD 04/25/2024 12:06 PM [facility] Anion Gap 8 3 - 11 LAB CHEMISTRY METHOD 04/25/2024 12:06 PM [facility] Glucose 67(L) 70 - 100 mg/dL LAB CHEMISTRY METHOD 04/25/2024 12:06 PM [facility] BUN 21 5 - 25 mg/dL LAB CHEMISTRY METHOD 04/25/2024 12:06 PM [facility] Creatinine 0.72 0.50 - 1.10 mg/dL LAB CHEMISTRY METHOD 04/25/2024 12:06 PM [facility] eGFR 87 >=60 mL/min/1. 73m2 LAB CHEMISTRY METHOD 04/25/2024 12:06 PM [facility] Comment:Calculation based on the??Chronic Kidney Disease Epidemiology Collaboration (CKD-EPI) equation refit??without adjustment for race. BUN/Creatinine Ratio 29.2 LAB CHEMISTRY METHOD 04/25/2024 12:06 PM [facility] Calcium 7.9(L) 8.5 - 10.5 mg/dL LAB CHEMISTRY METHOD 04/25/2024 12:06 PM [facility] AST (SGOT) 22 10 - 42 unit/L LAB CHEMISTRY METHOD 04/25/2024 12:06 PM [facility] ALT (SGPT) 21 10 - 60 unit/L LAB CHEMISTRY METHOD 04/25/2024 12:06 PM [facility] Alkaline Phosphatase 128(H) 42 - 121 unit/L LAB CHEMISTRY METHOD 04/25/2024 12:06 PM [facility] Total Protein 4.8(L) 6.0 - 8.0 g/dL LAB CHEMISTRY METHOD 04/25/2024 12:06 PM [facility] Albumin 1.7(L) 3.2 - 5.0 g/dL LAB CHEMISTRY METHOD 04/25/2024 12:06 PM [facility] Total Bilirubin 1.0 0.0 - 1.4 mg/dL LAB CHEMISTRY METHOD 04/25/2024 12:06 PM [facility] Blood Venous blood specimen / Unknown Venipuncture / Unknown 04/25/2024 5:31 AM EST 04/25/2024 9:31 AM EST us Gill Hoff MD LAB BLOOD ORDERABLES Final Resu lt [facility] [address] [place] [address], * Phosphorus (04/20/2024 5:27 AM EST) Only the most recent of3 resultswithin the time period is included. [facility] Phosphorus 2.9 2.5 - 4.5 mg/dL LAB CHEMISTRY METHOD 04/20/2024 8:06 AM EST [facility] Blood Venous blood specimen / Unknown Venipuncture / Unknown 04/20/2024 5:27 AM EST 04/20/2024 7:25 AM EST us Raul Gavin MD LAB BLOOD ORDERABLES F inal Result [facility] [address] [place] [address], [place] [phone] * (ABNORMAL) Magnesium (04/20/2024 5:27 AM EST) Only the most recent of6 resultswithin the time period is included. [facility] Magnesium 1.7(L) 1.9 - 2.6 mg/dL LAB CHEMISTRY METHOD 04/20/2024 8:06 AM EST [facility] Comment:Hemolysis present Blood Venous blood specimen / Unknown Venipuncture / Unknown 04/20/2024 5:27 AM EST 04/20/2024 7:25 AM EST us Raul Gavin MD LAB BLOOD ORDERABLES F inal Result [facility] [address] [place] [address], [place] [phone] * (ABNORMAL) Basic metabolic panel (04/20/2024 5:27 AM EST) Only the most recent of6 resultswithin the time period is included. [facility] Sodium 138 133 - 145 mmol/L LAB CHEMISTRY METHOD 04/20/2024 8:06 AM EST [facility] Potassium 5.3 3.5 - 5.5 mmol/L LAB CHEMISTRY METHOD 04/20/2024 8:06 AM [facility] Comment:Hemolysis present Chloride 104 96 - 110 mmol/L LAB CHEMISTRY METHOD 04/20/2024 8:06 AM [facility] CO2 28 21 - 32 mmol/L LAB CHEMISTRY METHOD 04/20/2024 8:06 AM [facility] Anion Gap 6 3 - 11 LAB CHEMISTRY METHOD 04/20/2024 8:06 AM [facility] Glucose 80 70 - 100 mg/dL LAB CHEMISTRY METHOD 04/20/2024 8:06 AM [facility] BUN 18 5 - 25 mg/dL LAB CHEMISTRY METHOD 04/20/2024 8:06 AM [facility] Creatinine 0.63 0.50 - 1.10 mg/dL LAB CHEMISTRY METHOD 04/20/2024 8:06 AM [facility] eGFR 93 >=60 mL/min/1. 73m2 LAB CHEMISTRY METHOD 04/20/2024 8:06 AM [facility] Comment:Calculation based on the??Chronic Kidney Disease Epidemiology Collaboration (CKD-EPI) equation refit??without adjustment for race. BUN/Creatinine Ratio 28.6 LAB CHEMISTRY METHOD 04/20/2024 8:06 AM [facility] Calcium 7.8(L) 8.5 - 10.5 mg/dL LAB CHEMISTRY METHOD 04/20/2024 8:06 AM [facility] Blood Venous blood specimen / Unknown Venipuncture / Unknown 04/20/2024 5:27 AM EST 04/20/2024 7:25 AM EST us Raul Gavin MD LAB BLOOD ORDERABLES F inal Result [facility] [address] [place] [address], * (ABNORMAL) Sedimentation rate (04/19/2024 6:45 AM EST) Sed Rate 78(H) 0 - 30 mm/hr LAB HEMETOLOGY METHOD 04/19/2024 10:16 PM EST [facility] Blood Venous blood specimen / Unknown Venipuncture / Unknown 04/19/2024 6:45 AM EST 04/19/2024 7:06 AM EST us Raul Gavin MD LAB BLOOD ORDERABLES F inal Result Performing Organization Address [facility]/ZIP Co de Phone Number [facility] [address] [place] [address], [place] [phone] * (ABNORMAL) C-reactive protein (04/19/2024 6:45 AM EST) C-Reactive Protein 4.93(H) <=0.50 mg/dL LAB CHEMISTRY METHOD 04/19/2024 10:29 PM EST [facility] Blood Venous blood specimen / Unknown Venipuncture / Unknown 04/19/2024 6:45 AM EST 04/19/2024 7:06 AM EST us Raul Gavin MD LAB BLOOD ORDERABLES F inal Result Performing Organization Address [facility]/ZIP Co de Phone Number [facility] [address] [place] [address], [place] [phone] * XR Chest 1 View (04/17/2024 9:42 AM EST) Anatomical Region Laterality Modality Body Radiographic Cassy ging 04/17/2024 10:0 0 AM EST Impressions 04/17/2024 10:01 AM EST Limited study. No focal pneumonia or edema -------- FINAL REPORT -------- Dictated By: Ron Reyna Dictated Date: 04/17/2024 10:00 ET Assigned Physician: Ron Reyna Reviewed and Electronically Signed By: Ron Reyan Signed Date: 04/17/2024 10:01 ET Workstation ID: [id number] Transcribed By: Self Edit Transcribed Date: 04/17/2024 10:00 ET Narrative 04/17/2024 10:01 AM EST EXAMINATION: CHEST CLINICAL INFORMATION: The patient was scheduled to undergo barium swallow. The patient was unable to tolerate the exam. Preliminary radiograph was obtained COMPARISON: Frontal view 08/05/2019 TECHNIQUE: Sitting frontal view of the chest FINDINGS: Power generator partially included. Leads project in the region of the right atrium and right ventricle. Lordotic projection with rotation toward the right. Prominent cardiac silhouette. No large hilar mass. No alveolar edema. Hazy density over the lower chest likely due to overlying soft tissues. No pneumonia in the upper lung zones Procedure Note Ron Reyna MD - 04/17/2024 EXAMINATION: CHEST CLINICAL INFORMATION: The patient was scheduled to undergo barium swallow. The patient wasunable to tolerate the exam. Preliminary radiograph was obtained COMPARISON: Frontal view 08/05/2019 TECHNIQUE: Sitting frontal view of the chest FINDINGS: Power generator partially included. Leads project in the region of theright atrium and right ventricle. Lordotic projection with rotation towardthe right. Prominent cardiac silhouette. No large hilar mass. No alveolaredema. Hazy density over the lower chest likely due to overlying softtissues. No pneumonia in the upper lung zones IMPRESSION: Limited study. No focal pneumonia or edema -------- FINAL REPORT -------- Dictated By: Ron Reyna Dictated Date: 04/17/2024 10:00 ET Assigned Physician: Ron Reyna Reviewed and Electronically Signed By: Ron Reyna Signed Date: 04/17/2024 10:01 ET Workstation ID: [id number] Transcribed By: Self Edit Transcribed Date: 04/17/2024 10:00 ET Raul Gavin MD IMG XR PROCEDURES Alma Delia l Result * ECG-Annotated (04/17/2024) us Provider Onbase ECG ORDERABLES Final Result * Vascular US duplex lower extremity venous bilateral (04/14/2024 6:17 PM EST) Anatomical Region Laterality Modality Vascular, Abdomen Ultrasound 04/15/2024 8:13 AM EST Impressions 04/15/2024 8:14 AM EST No deep venous thrombosis of either lower extremity. -------- FINAL REPORT -------- Dictated By: Stu Peralta Dictated Date: 04/15/2024 08:13 ET Assigned Physician: Stu Peralta Reviewed and Electronically Signed By: Stu Peralta Signed Date: 04/15/2024 08:14 ET Workstation ID: [id number] Transcribed By: Self Edit Transcribed Date: 04/15/2024 08:13 ET Narrative 04/15/2024 8:14 AM EST Bilateral lower extremity deep vein thrombosis study, 04/14/2024. HISTORY: edema. COMPARISON: None. TECHNIQUE: Grayscale, color Doppler, and spectral Doppler ultrasound evaluation of the deep venous structures of the lower extremities. ??Augmentation and compression maneuvers were performed. FINDINGS: The deep venous structures of the lower extremities demonstrate normal compressibility with normal color and spectral Doppler flow and a normal response to augmentation maneuvers. Procedure Note Stu Peralta MD - 04/15/2024 Bilateral lower extremity deep vein thrombosis study, 04/14/2024. HISTORY: edema. COMPARISON: None. TECHNIQUE: Grayscale, color Doppler, and spectral Doppler ultrasoundevaluation of the deep venous structures of the lower extremities.Augmentation and compression maneuvers were performed. FINDINGS: The deep venous structures of the lower extremities demonstrate normalcompressibility with normal color and spectral Doppler flow and a normalresponse to augmentation maneuvers. IMPRESSION: No deep venous thrombosis of either lower extremity. -------- FINAL REPORT -------- Dictated By: Stu Peralta Dictated Date: 04/15/2024 08:13 ET Assigned Physician: Stu Peralta Reviewed and Electronically Signed By: Stu Peralta Signed Date: 04/15/2024 08:14 ET Workstation ID: [id number] Transcribed By: Self Edit Transcribed Date: 04/15/2024 08:13 ET us Anuradha Hall NP CV VASCULAR PROCEDURES Final R esult * CT Abdomen Pelvis w Contrast (04/14/2024 1:13 PM EST) Anatomical Region Laterality Modality Body Computed Tomogra phy 04/14/2024 1:35 PM EST Impressions 04/14/2024 1:41 PM EST No acute findings. Hepatic steatosis. -------- FINAL REPORT -------- Dictated By: Stu Peralta Dictated Date: 04/14/2024 13:35 ET Assigned Physician: Stu Peralta Reviewed and Electronically Signed By: Stu Peralta Signed Date: 04/14/2024 13:41 ET Workstation ID: [id number] Transcribed By: Self Edit Transcribed Date: 04/14/2024 13:35 ET Narrative 04/14/2024 1:[address] abdomen and pelvis, 04/14/2024. HISTORY: Abdominal pain, acute, RUQ. COMPARISON: 08/05/2019. TECHNIQUE: Contrast-enhanced CT of the abdomen and pelvis with coronal and sagittal reformats. IV contrast dose: 90 mL ISOVUE-370. Dose length product: ??1774 mGy-cm. FINDINGS: Lung bases: Normal. Cardiac: Partially visible pacemaker leads positioned in the right atrium and right ventricle. Liver: Moderate steatosis. ??No focal lesion. ??Portal veins are patent. Biliary: Cholecystectomy. ??Mild prominence of the common duct as is often seen in this postoperative setting. ??No visible ductal dilatation. Pancreas: Diffuse fatty atrophy. Spleen: Normal. Adrenal glands: Normal. Kidneys: Normal. ??Normal appearance of the ureters. Retroperitoneum: No mass or adenopathy. Abdominal vasculature: Mild atherosclerotic calcification. Bowel/mesentery: Small hiatal hernia. ??Postsurgical changes of gastric bypass. ??No obstruction or adenopathy. ??No mass or ascites. ??Scattered sigmoid diverticula. ??Normal appendix. Abdominal wall: Rectus diastases. Pelvic nodes: No adenopathy. Pelvic organs: Hysterectomy. Bones: Degenerative changes of the spine. ??Osteopenia. Procedure Note Stu Peralta MD - 04/14/2024 CT abdomen and pelvis, 04/14/2024. HISTORY: Abdominal pain, acute, RUQ. COMPARISON: 08/05/2019. TECHNIQUE: Contrast-enhanced CT of the abdomen and pelvis with coronal andsagittal reformats. IV contrast dose: 90 mL ISOVUE-370. Dose length product: 1774 mGy-cm. FINDINGS: Lung bases: Normal. Cardiac: Partially visible pacemaker leads positioned in the right atriumand right ventricle. Liver: Moderate steatosis. No focal lesion. Portal veins are patent. Biliary: Cholecystectomy. Mild prominence of the common duct as is oftenseen in this postoperative setting. No visible ductal dilatation. Pancreas: Diffuse fatty atrophy. Spleen: Normal. Adrenal glands: Normal. Kidneys: Normal. Normal appearance of the ureters. Retroperitoneum: No mass or adenopathy. Abdominal vasculature: Mild atherosclerotic calcification. Bowel/mesentery: Small hiatal hernia. Postsurgical changes of gastricbypass. No obstruction or adenopathy. No mass or ascites. Scatteredsigmoid diverticula. Normal appendix. Abdominal wall: Rectus diastases. Pelvic nodes: No adenopathy. Pelvic organs: Hysterectomy. Bones: Degenerative changes of the spine. Osteopenia. IMPRESSION: No acute findings. Hepatic steatosis. -------- FINAL REPORT -------- Dictated By: Stu Peralta Dictated Date: 04/14/2024 13:35 ET Assigned Physician: Stu Peralta Reviewed and Electronically Signed By: Stu Peralta Signed Date: 04/14/2024 13:41 ET Workstation ID: [id number] Transcribed By: Self Edit Transcribed Date: 04/14/2024 13:35 ET Mary GARCIA [facility] [place] PROCEDURES Final Result * (ABNORMAL) Beta hydroxybutyrate (04/14/2024 8:02 AM EST) Beta-Hydroxyb utyrate 23.5(H) 0.2 - 2.8 mg/dL LAB CHEMISTRY METHOD 04/14/2024 9:44 AM EST [facility] Blood Venous blood specimen / Unknown Venipuncture / Unknown 04/14/2024 8:02 AM EST 04/14/2024 8:11 AM EST Mary GARCIA LAB BLOOD ORDERABLES Final Resul t Performing Organization Address City/[facility]/ZIP Co de Phone Number [facility] ([facility]) [facility] [address] [place] [address], * ECG 12 lead (04/14/2024 7:13 AM EST) Ventricular Rate ECG 105 BPM GEMUSE Atrial Rate 105 BPM GEMUSE P-R Interval 128 ms GEMUSE QRS Duration 72 ms GEMUSE Q-T Interval 350 ms GEMUSE QTc 462 ms GEMUSE R [place] 13 degrees GEMUSE T [place] 60 degrees GEMUSE ECG Interpretation Sinus tachycardia Nonspecific T wave abnormality When compared with ECG of 05-AUG-2019 10:18, Premature atrial complexes are no longer Present Nonspecific T wave abnormality now evident in Anterior leads Confirmed by BECKY MCCLURE ([id number]) on 04/14/2024 9:20:38 PM GEMUSE 04/14/2024 7:13 AM EST 04/14/2024 9:20 PM EST Elisa GARCIA ECG ORDERABLES Final Result GEMUSE from Last 3 Months Insurance [employer] [place]ICA[place] - [place] [employer] Advance Directives Documents on File Type Date 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 Do not modify or discontinue any currently active code status orders. * Full Code - Default Date Activated Date Inactivated Comments 04/14/2024 3:27 PM 04/14/2024 5:31 PM This is or rhoda is used when code status has not been discussed with the patient, or code status is otherwise unknown/unconfirmed To update the patient's code status, place a code status order. Do not modify or discontinue any currently active code status orders. 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
--- OUTSIDE RECORDS SUMMARY | 2024-06-27 14:09 | XMS_ITS | Encounter Summary ---
Author Organization [facility] Address [address] [place] [id number] Care Team Providers Care Supervisor Special Services Name Role Phone Physician, No Pcp Primary Care Provider Unavaila ble Encounter Details Date Type Department Care Team (Late st Contact Info) Description 05/07/2024 Lab Requisition [facility] - Main Lab [address] [place] [address] Tad Maloney NP [address] [place] [address] Hypothyroidism, unspecified Social History Tobacco Use Types Packs/Day Years [...] Routine 05/07/2024 4:56 AM EST Hypothyroidism, unspecified documented in this encounter Results * Thyroid stimulating hormone with reflex to free t4 and free t3 (05/07/2024 4:56 AM EST) TSH 2.86 0.40 - 4.00 mcIU/mL LAB CHEMISTRY METHOD 05/07/2024 10:17 AM EST [facility] Blood Venous blood specimen / Unknown Venipuncture / Unknown 05/07/2024 4:56 AM EST 05/07/2024 9:13 AM EST Tad Maloney NP LAB BLOOD ORDERABLES Final Resul t [facility] ([facility]) [facility] [address] [place] [address], documented in this encounter Visit Diagnoses Diagnosis Hypothyroidism, unspecified documented in this encounter Care Teams Supervisor Special Services Relationship Specialty Start Date End Date Physician, No Pcp PCP - General 04/14/24 documented as of this encounter
== END 2024-06-27 14:03 | disposition home or self-care (01) ==
PROVIDERS: PCP Nurse Practitioner Family; Visit Provider Nurse Practitioner Family
DX: R60.0 Localized edema (principal); I48.0 Paroxysmal atrial fibrillation; E66.01 Morbid (severe) obesity due to excess calories; E46 Unspecified protein-calorie malnutrition; R29.6 Repeated falls; Z76.89 Persons encountering health services in other specified circumstances; Z74.09 Other reduced mobility; Z28.21 Immunization not carried out because of patient refusal; R29.898 Other symptoms and signs involving the musculoskeletal system; Z23 Encounter for immunization; Z95.0 Presence of cardiac pacemaker; K44.9 Diaphragmatic hernia without obstruction or gangrene